=== PATIENT | female | born 1950 | race Caucasian/White ===

== ENCOUNTER 2018-07-28 12:35 | Inpatient (IN) ==
[2018-07-28 15:21] LABS: Basophils % 0.3 % (0.0-0.8); Eosinophils # 0.3 10*3/uL (0.0-0.87); Eosinophils % 3.6 % (0.00-10.9); Hematocrit 38.9 VOL% (35.7-47.0); Hemoglobin 12.9 GM/DL (12.0-16.0); Immature Granulocytes % 0.5 %; Immature Granulocytes Absolute 0.04 #; Lymphocytes # 2.2 10*3/uL (1.4-4.0); Lymphocytes % 30.3 % (21.3-54.2); Mean Corpuscular HGB Conc 33.2 GM/DL (32-36); Mean Corpuscular Hemoglobin 29 PG (27-34); Mean Corpuscular Volume 87.4 FL (87-102); Mean Platelet Volume 10.4 FL (9.6-12.0); Monocytes # 0.4 10*3/uL (0.11-0.8); Monocytes % 5.5 % (1.7-12.7); Neutrophils # 4.4 10*3/uL (1.4-7.4); Neutrophils % 59.8 % (38.7-73.9); Platelet Count 302 T/CUMM (130-400); Red Blood Count 4.45 MC/CUMM (3.8-5.5); Red Cell Distribution Width 12.4 % (9.3-17.3); White Blood Count 7.3 T/CUMM (4-12)
[2018-07-28 15:27] LABS: PT Patient Result 10.4 SECS; Partial Thromboplastin Time 24.5 SECS (0-40)
[2018-07-28 15:33] LABS: Albumin 4.4 G/DL (3.4-5.0); Bilirubin,Total 0.4 MG/DL (0.2-1.0); Calcium 9.7 MG/DL (8.5-10.1); Osmolality,Calculated 276.4 MOS/KG (273-304); Potassium 3.8 MMOL/L (3.5-5.1); Total Protein 7.3 G/DL (6.4-8.3)
[2018-07-28 15:49] LABS: Apearance,Urine CLEAR (Clear); Bilirubin,Urine Negative (Negative); Blood, Urine Negative (Negative); Glucose,Urine (UA) Negative (Negative); Ketones,Urine Negative (Negative); Nitrite,Urine Negative (Negative); Protein,Urine Negative; RBC,Urine <1 /HPF (0-4); Squamous Epithelial Cell,Urine Occasional /HPF (0-10); Urine Color Straw (Yellow); Urine Urobilinogen < 2.0 EU/DL (0.2-1.0); WBC,Urine <1 /HPF (0-6)
[2018-07-28] MEDS ORDERED: ACETAMINOPHEN 325 MG TABLET PO PRN (16:30)
[2018-07-28] MEDS ORDERED: LOPERAMIDE 2 MG CAPSULE PO PRN (16:30)
[2018-07-28] MEDS ORDERED: ALUMINUM/MAGNES/SIMETH MAX STR 30 ML UDCUP PO PRN (16:30)
[2018-07-28] MEDS ORDERED: ONDANSETRON 4 MG/2 ML VIAL IV PRN (16:30)
[2018-07-28] MEDS ORDERED: traMADol 50 MG TABLET PO PRN (16:30)
[2018-07-28] MEDS ORDERED: MAGNESIUM HYDROXIDE SUSP 30 ML UDCUP PO PRN (16:30)
[2018-07-28] MEDS: SODIUM CHLORIDE 0.9% 1,000 ML IV SCH (17:06)
[2018-07-28] MEDS: DEXAMETHASONE 4 MG TABLET PO SCH ×2 (18:33→20:23)
[2018-07-29] MEDS: DEXAMETHASONE 4 MG TABLET PO SCH ×4 (10:42→21:15)
[2018-07-29] MEDS: ASPIRIN 325 MG TABLET PO SCH (10:42)
[2018-07-29] MEDS: SODIUM CHLORIDE 0.9% 1,000 ML IV SCH (15:19)
[2018-07-29] MEDS: APIXABAN 2.5 MG TABLET PO SCH (21:15)
[2018-07-30] MEDS: ASPIRIN 325 MG TABLET PO SCH (08:24)
[2018-07-30] MEDS: APIXABAN 2.5 MG TABLET PO SCH ×2 (08:24→21:07)
[2018-07-30] MEDS: DEXAMETHASONE 4 MG TABLET PO SCH ×4 (08:24→21:07)
[2018-07-31] MEDS: DEXAMETHASONE 4 MG TABLET PO SCH ×4 (08:54→21:33)
[2018-07-31] MEDS: APIXABAN 2.5 MG TABLET PO SCH ×2 (08:54→21:33)
[2018-07-31] MEDS: ASPIRIN 325 MG TABLET PO SCH (08:54)
[2018-08-01 08:09] VITALS: BP 160/74
[2018-08-01] MEDS: APIXABAN 2.5 MG TABLET PO SCH (09:36)
[2018-08-01] MEDS: ASPIRIN 325 MG TABLET PO SCH (09:36)
[2018-08-01] MEDS: DEXAMETHASONE 4 MG TABLET PO SCH (09:36)
== END 2018-08-01 10:30 | disposition home or self-care (01) | DRG 65 ==
LOC: N.ED 12:35 → N.EDINP 16:30 → N.4E 17:25
PROVIDERS: ADMIT Specialist; ATTEND Specialist